=== PATIENT | male | born 1990 | race Caucasian/White ===

== ENCOUNTER 2020-04-11 15:34 | Emergency (ER) | payer MEDICAID ==
[2020-04-11 16:16] VITALS: BP 139/78
[2020-04-11] MEDS ORDERED: TETANUS/DIPHTHERIA/PERTUSSIS 0.5 ML SYRINGE IM ONE (16:28)
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
== END 2020-04-11 16:52 | disposition home or self-care (01) ==
LOC: ED 15:34
DX: S50.312A Abrasion of left elbow, initial encounter (principal); S60.512A Abrasion of left hand, initial encounter; S30.810A Abrasion of lower back and pelvis, initial encounter; S80.212A Abrasion, left knee, initial encounter; V18.4XXA Pedal cycle driver injured in noncollision transport accident in traffic accident, initial encounter; B35.4 Tinea corporis
CPT/HCPCS: 90471; 99283

== ENCOUNTER 2020-11-10 13:06 | Emergency (ER) | payer MEDICAID ==
[2020-11-10] MEDS ORDERED: PENICILLIN VK 250 MG TABLET PO STA (13:13)
[2020-11-10 13:14] VITALS: BP 145/96
--- NOTE | 2020-11-10 13:15 | ED Physician Documentation ---
History of Present Illness - Stated complaint Stated Complaint: TOOTH PX - History obtained from History obtained from: Patient - Additonal information Additional information: Otherwise healthy 30-year-old gentleman on Suboxone for history of heroin addiction has 1 day of painful swelling from the right mandible related to a carious tooth.Denies fevers, trismus. No recent dental visits, its been many years. Review of Systems Constitutional: reports: Reviewed and negative Eyes: reports: Reviewed and negative Ears: reports: Reviewed and negative Nose: reports: Reviewed and negative PD PAST MEDICAL HISTORY - Present Medications Home Medications: Ambulatory Orders Medication Instructions Recorded Confirmed Buprenorphine HCl/Naloxone HCl 1 tab PO TID 11/10/20 11/10/20 [Suboxone 8-2 mg Sl tab] Penicillin V Potassium 500 mg PO Q6HR #40 tablet 11/10/20 buPROPion [Wellbutrin Sr] 100 mg PO DAILY 11/10/20 11/10/20 - Allergies Allergies/Adverse Reactions: Allergies Allergy/AdvReac Type Severity Reaction Status Date / Time No Known Drug Allergies Allergy Verified 11/10/20 13:10 PD ED PE NORMAL - Vitals Vital signs reviewed: Yes - General General: Alert and oriented X 3, No acute distress - HEENT HEENT: PERRL, EOMI, Other (Most of his molars are carious down to the gumline. There is very mild swelling over the right mandible without trismus or sublingual edema.) - Neck Neck: Supple, no meningeal sign, No bony TTP - Neuro Neuro: Alert and oriented X 3, Normal speech Results - Vitals Vitals: Vital Signs - 24 hr 11/10/20 13:12 Temperature 36.4 C L Heart Rate 86 Respiratory 19 Rate Blood Pressure 145/96 H O2 Saturation 100 Oxygen O2 Source Room air Departure - Departure Disposition: Home, Self Care Clinical Impression: Dental abscess Condition: Good Record reviewed to determine appropriate education?: Yes Instructions: ED Abscess Dental Follow-Up: SUSAN HOLLEY [Physician No Access] - Prescriptions: Penicillin V Potassium 500 mg PO Q6HR #40 tablet Comments: It is very important that you follow-up with a dentist. When it comes to dental problems like yours, the emergency department can only offer a short-term solution to your long-term problem. A couple of low cost options for dental care include: [facility] in [place], calls [phone] for an appointment Or [facility] in [place], call [phone] for an appointment.
== END 2020-11-10 13:25 | disposition home or self-care (01) ==
LOC: ED 13:06
DX: K04.7 Periapical abscess without sinus (principal)
CPT/HCPCS: 99282; 99283; A9270

== ENCOUNTER 2024-01-24 16:53 | Emergency (ER) | payer BC, MEDICAID ==
--- NOTE | 2024-01-24 16:59 | ED Physician Documentation ---
PD HPI HEENT - Stated complaint Stated Complaint: TOOTH PX - Chief complaint Chief Complaint: Heent - History obtained from History obtained from: Patient - History of Present Illness Timing - onset: How many days ago (few) Timing - duration: Days (few) Timing - details: Gradual onset, Still present (has gotten more severe. Trying to get to dentist but not for another week or more.) Location: Tooth (right upperincisor and canine (teeth 5 and 8)) Worsens: Temperatures, Everything Associated symptoms: Facial swelling (right maxillary area has started today). No: Fever, Congestion, Headache Similar symptoms before: Diagnosis (prior dental infections) Review of Systems Constitutional: denies: Fever, Chills Throat: reports: Dental pain / toothache. denies: Oral lesions / sores, Sore throat PD PAST MEDICAL HISTORY - Past Medical History Past Medical History: No - Past Surgical History Past Surgical History: No - Present Medications Home Medications: Ambulatory Orders Medication Instructions Recorded Confirmed Buprenorphine HCl/Naloxone HCl 1 tab PO DAILY 11/10/20 01/24/24 [Suboxone 8-2 mg Sl tab] buPROPion [Wellbutrin Sr] 100 mg PO DAILY 11/10/20 01/24/24 HYDROcod/ACETAM 5/325 [[place] 5/325] 1 ea PO TID PRN #20 tablet 01/24/24 Meloxicam [Mobic] 7.5 mg PO BID 10 Days #20 tablet 01/24/24 clindamycin HCL [Clindamycin HCl] 300 mg PO TID 7 Days #20 cap 01/24/24 clonazePAM [Clonazepam] 1 mg PO DAILY PRN 01/24/24 01/24/24 - Allergies Allergies/Adverse Reactions: Allergies Allergy/AdvReac Type Severity Reaction Status Date / Time No Known Drug Allergies Allergy Verified 01/24/24 16:55 - Social History Does the pt smoke?: No Smoking Status: Never smoker Does the pt drink ETOH?: No Does the pt have substance abuse?: No - Immunizations Immunizations are current?: No - POLST Patient has POLST: No PD ED PE NORMAL - Vitals Vital signs reviewed: Yes - General General: Alert and oriented X 3, Well developed/nourished, Other (appears in pain due to teeth) - HEENT HEENT: Pharynx benign. No: Dentition benign (multiple caries. Teeth 5 and 8 particularly decayed with tenderness to palpation and percussion. Some swelling of gum. No abscess. Caries not appearing amenable to temp filling. ) - Neck Neck: Supple, no meningeal sign, No adenopathy Results - Vitals Vitals: Vital Signs - 24 hr 01/24/24 16:55 Temperature 36.8 C Heart Rate 74 Respiratory 16 Rate Blood Pressure 137/78 H O2 Saturation 100 Oxygen O2 Source Room air PD Medical Decision Making - ED course Complexity details: considered differential (decayed teeth with now pain and some developing swelling c/w infection. No abscess. ), d/w patient Departure - Departure Disposition: Home, Self Care Clinical Impression: Infected dental caries Condition: Stable Record reviewed to determine appropriate education?: Yes Prescriptions: clindamycin HCL [Clindamycin HCl] 300 mg PO TID 7 Days #20 cap Meloxicam [Mobic] 7.5 mg PO BID 10 Days #20 tablet HYDROcod/ACETAM 5/325 [[place] 5/325] 1 ea PO TID PRN #20 tablet PRN Reason: Pain Comments: Clindamycin antibiotic 3 times daily for the next 6 to 7 days to help with the infection. Stay well-hydrated. Antiseptic mouth rinse periodically to help some of the germs in the cavities. I did write for a different anti-inflammatory that has a longer half-life so you only need twice a day with the meloxicam rather than multiple times through the day for ibuprofen. In addition add Tylenol every 4-6 hours if needed for pain. Add hydrocodone/acetaminophen if needed for worse pain. Follow-up with the dental clinic, call for an appointment. I will be more definitive care of the teeth to prevent or reduce recurrent infections. For the current infection/pain, recheck if not improving well over the next few days. I sent your prescription to your preferred pharmacy. I am prescribing a short course of narcotic pain medication for you. These are potentially dangerous and addictive medications that should be used carefully. These medications may constipate you. Take an [id number] stool softener such as docusate twice daily with plenty of water while taking these medications. If you go 24 hours without a bowel movement, take [id number] MiraLAX, per package instructions. Do not drink or drive while taking these medications. If you received narcotic or sedating medications while in the emergency department do not drive for 24 hours. Store this medication in a safe, secure place and out of reach of children. It is a violation of federal law to give or sell this medication to another pers on or to use in a manner other than prescribed. The ED will not refill narcotic prescriptions, including prescriptions lost or stolen. You can dispose of unwanted medications at the [facility] office or at several pharmacies such as [facility]. Forms: PCP List, Activity restrictions Discharge Date/Time: 01/24/24 17:35
[2024-01-24 17:00] VITALS: BP 137/78; O2SAT 100
[2024-01-24] MEDS: CLINDAMYCIN 150 MG CAPSULE PO STA (17:23)
[2024-01-24] MEDS: HYDROcod/ACET 5/325 Prepack 4 PO STA (17:31)
== END 2024-01-24 17:35 | disposition home or self-care (01) ==
LOC: ED 16:53
DX: K02.9 Dental caries, unspecified (principal); Z79.899 Other long term (current) drug therapy
CPT/HCPCS: 99283; A9270